=== PATIENT | male | born 1940 | race Caucasian/White ===

== ENCOUNTER 2018-08-02 09:35 | Outpatient (CLI) | payer BC ==
--- NOTE | 2018-08-02 10:19 | RAD ---
LEFT HIP 2 VIEWS: HISTORY: Arthritis. COMPARISON: None. FINDINGS: Small osteophyte formation. The left obturator ring is intact. No acute fracture or malalignment. IMPRESSION: Mild degenerative changes. No acute abnormality. POS: EDMUNDH
--- NOTE | 2018-08-02 10:21 | RAD ---
RIGHT HIP 2 VIEWS: HISTORY: Pain. COMPARISON: None. FINDINGS: No fracture. No malalignment. There is mild acetabular undercoverage of the femoral head. There re main osteophytes to the right femoral head and neck junction. IMPRESSION: Mild to moderate degenerative changes. POS: KASANDRA
== END 2018-08-02 09:36 | disposition home or self-care (01) ==
LOC: BICRAD 09:35
PROVIDERS: ATTEND Family Medicine
DX: M25.559 Pain in unspecified hip (principal); M16.0 Bilateral primary osteoarthritis of hip

== ENCOUNTER 2019-03-25 12:56 | Observation (INO) | payer BC, MEDICARE ==
[2019-03-25 13:18] LABS: #Basophils 0.1 thou/uL (0.0-0.2); #Eosinphils 0.3 thou/uL (0.0-0.7); #Lymphocytes 2.1 thou/uL (1.20-3.40); #Monocytes 0.7 thou/uL (0.11-0.59); #Neutrophils 4.9 thou/uL (1.40-6.50); %Basophils 0.7 % (0.0-1.0); %Eosinophils 3.2 % (0.0-10.0); %Lymphocytes 26.4 % (21.0-51.0); %Monocytes 8.9 % (0.0-10.0); %Neutrophils 60.7 % (42.0-75.0); Hemoglobin 15.7 g/dL (14.0-18.0); Mean Corpuscular HGB CONC 34.5 g/dL (32.0-36.0); Mean Corpuscular Hemoglobin 33.3 pg (27.0-31.0); Mean Corpuscular Volume 96.5 fL (78.0-98.0); Mean Platelet Volume 6.8 fL (7.4-10.4); Platelet Count 253 thou/uL (130-400); RBC Distribution Width 11.9 % (11.5-14.5)
[2019-03-25 13:42] LABS: ALT (SGPT) 13 U/L (8-55); AST (SGOT) 16 U/L (5-34); Albumin 4.3 g/dL (3.4-4.8); Alkaline Phosphatase 47 U/L (40-110); Anion Gap 16 mmol/L (10-20); BUN (Urea Nitrogen) 27 mg/dL (8.4-25.7); Bilirubin, Total 0.5 mg/dL (0.2-1.2); CK (CPK) 74 U/L (30-200); Calc. Creatinine Clearance 0 mL/min (70-130); Calcium 9.1 mg/dL (7.8-10.44); Carbon Dioxide 21 mmol/L (23-31); Chloride 106 mmol/L (98-107); Estimated GFR-MDRD 33; Globulin 2.9 g/dL (2.4-3.5); Glucose 86 mg/dL (83-110); Lipase 46 U/L (8-78); Potassium 4.5 mmol/L (3.5-5.1); Protein, Total 7.2 g/dL (5.8-8.1); Sodium 138 mmol/L (136-145)
--- NOTE | 2019-03-25 13:45 | RAD ---
SINGLE VIEW CHEST: Date: 03/25/19 COMPARISON: 05/20/13. HISTORY: Shortness of breath and chest pain. FINDINGS: Single view of the chest shows normal sized cardiomediastinal silhouette with atherosclerotic calcifi cations in the aorta. There is no evidence of consolidation or pleural effusion. Calcified granuloma is seen projecting over the right lower lobe. IMPRESSION: No evidence of acute cardiopulmonary disease. POS: CET
[2019-03-25 15:50] VITALS: BMI 24.8
[2019-03-25 16:53] LABS: Troponin I Less than 0.010 ng/mL (< 0.028)
[2019-03-25] MEDS ORDERED: Acetaminophen 325 MG TAB PO PRN (17:42)
[2019-03-25] MEDS ORDERED: Ondansetron PF 4 MG/2 ML Vial IVP PRN (17:42)
[2019-03-25] MEDS ORDERED: Ondansetron ODT 4 MG TAB PO PRN (17:42)
[2019-03-25] MEDS ORDERED: Communication Order-Pharmacy FS SCH (17:45)
[2019-03-25] MEDS ORDERED: hydrALAZINE 20 MG/ML VIAL SLOW IVP PRN (17:46)
[2019-03-25] MEDS ORDERED: Nitroglycerin 0.4 MG TAB (25 Tab Bottle) SL PRN (17:48)
[2019-03-25] MEDS: Sodium Chloride 0.9% 1,000 ML IV SCH (17:59)
--- NOTE | 2019-03-25 18:07 | CON ---
DATE OF CONSULTATION: REASON FOR CONSULTATION: Recurrent chest pain and shortness of breath. PRIMARY ORNAMENTAL IRON WORKER: Dr. Allen Ribera. HISTORY OF PRESENT ILLNESS: Mr. Best is an 78-year-old gentleman, who was scheduled for coronary angiography on 04/04. He recently presented with shortness of breath and chest pressure. He is currently comfortable and pain free. Mr. Best did undergo a cardiac PET study on 03/02/2019 and was found to have anterolateral ischemia with LVEF of 58%. PAST MEDICAL HISTORY: 1. Hypertension. 2. Renal insufficiency. HOME MEDICATIONS: 1. Metoprolol. 2. Omeprazole. SURGICAL HISTORY: 1. Back surgery. 2. Eye surgery. 3. Knee replacement. 4. Colonoscopy. SOCIAL HISTORY: No current tobacco or alcohol use. He quit all tobacco products over 20 years ago. ALLERGIES: NONE. REVIEW OF SYSTEMS: A 10-point review of systems is reviewed as above, otherwise negative. PHYSICAL EXAMINATION: GENERAL: Patient is a pleasant gentleman who is in no acute distress. The patient appears their stated age. VITAL SIGNS: Blood pressure 163/86, pulse 62, temperature 98.1. NEUROLOGIC: The patient is alert and oriented x3 with no focal neurologic deficits. HEENT: Sclerae without icterus. Mouth has moist mucous membranes with normal pallor. NECK: No JVD. Carotid upstroke brisk. No bruits bilaterally. LUNGS: Clear to auscultation with unlabored respirations. BACK: No scoliosis or kyphosis. CARDIAC: Regular rate and rhythm with normal S1 and S2. No S3 or S4 noted. No significant rubs, murmurs, thrills, or gallops noted throughout the precordium. PMI is not displaced. There is no parasternal heave. ABDOMEN: Soft, nontender, nondistended. No peritoneal signs present. No hepatosplenomegaly. No abnormal striae. EXTREMITIES: 2+ femoral and 2+ dorsalis pedis pulses. No cyanosis, clubbing, or edema. SKIN: No gross abnormalities. PERTINENT LABORATORY DATA: Hemoglobin 15.7 and creatinine 1.94 with a GFR of 33. Troponin negative. EKG, normal sinus rhythm, normal EKG. IMPRESSION: 1. Atypical chest pain. 2. Abnormal stress. 3. Renal insufficiency. 4. Previous tobacco abuse. RECOMMENDATIONS: I had a long discussion with Mr. Best and with his . Discussed continued to rule out by troponin and CK-MB. We then discussed discharge with outpatient followup. I also discussed proceeding with continued inpatient management with IV fluids and proceed with coronary angiography on Thursday. The patient out for staying over the weekend and proceeding with angio on Thursday. We will start IV fluids. I discussed coronary angiography in full detail with Mr. Best. The risks of the procedure were also discussed. The risks of the procedure include but are not limited to the following: , stroke, RI, need for emergency surgery, loss of limb, bleeding, and infection, as well as a reaction to the dye causing kidney failure and needing long-term dialysis. I also discussed the risks of PCI to include all of the above including coronary dissection and perforation in addition to acute stent thrombosis and restenosis. All questions about the procedure were answered. Given the above, the patient agreed to proceed with coronary angiography and possible PCI. We also discussed drug coated versus nondrug coated stent placement. We will proceed with drug-coated stent placement if needed. There are no contraindications. Job ID: [id number]
[2019-03-25 20:08] LABS: Troponin I 0.017 ng/mL (< 0.028)
--- NOTE | 2019-03-26 | HP ---
PRIMARY CARE PHYSICIAN: Dr. Gilliland. CHIEF COMPLAINT: Chest pain. HISTORY OF PRESENT ILLNESS: Mr. Best is an 78-year-old man, with a past medical history of hypertension and coronary artery disease with previous NC, who had presented to the ED earlier today after he had chest pain, shortness of breath, and some generalized weakness that had worsened this morning. He states that the symptoms have been on and off over the last month. He had seen his primary care doctor, Dr. Gilliland, several weeks ago that what he thought was some indigestion and was started on omeprazole. However, he was sent over to see Dr. Ribera who had put the patient through a stress test and an echocardiogram, which had revealed that the patient had a previous NC, some "leaky valve" and Dr. Ribera had planned to take the patient for cardiac catheterization on 04/04/2019; however, these symptoms worsened this morning; therefore, he came in to be seen sooner. Currently, the patient denies any fever, chills, any headache, blurred vision, dizziness, any chest pain, palpitations, shortness of breath, abdominal pain, nausea, vomiting, or any change in his stool. His serial troponins were found to be negative x2. His creatinine was slightly elevated at 1.94, which appears to be around his baseline and consistent with CKD, stage 3. The patient states that he sees Dr. Resendez for his kidneys. At this time, he appears to be stable with no acute complaints. His EKG showed normal sinus rhythm with a rate of 65 and blood pressure and other vital signs remained stable during the ED course. REVIEW OF SYSTEMS: All other systems were reviewed and found to be negative unless mentioned in the HPI. PAST MEDICAL HISTORY: Hypertension, coronary artery disease with a history of NC, chronic kidney disease. PAST SURGICAL HISTORY: Back surgery x3, bilateral knee replacement, right shoulder surgery. PSYCHIATRIC HISTORY: None. SOCIAL HISTORY: The patient reports drinking about 2 beers daily playing pool; however, denies any illicit drug use and denies smoking. The patient states that he is a former smoker, but quit about 40 years ago. KNOWN ALLERGIES: No known drug allergies. CURRENT HOME MEDICATIONS: 1. Aspirin 325 mg oral daily. 2. Metoprolol 50 mg oral daily. 3. Nifedipine 30 mg p.o. daily. 4. Omeprazole 40 mg oral daily. 5. Acetaminophen 500 mg p.o. daily. PHYSICAL EXAMINATION: VITAL SIGNS: BP 163/86, pulse 62, respiration 18, temp 98.1, O2 saturation 99% on room air. GENERAL: The patient is awake, alert, and oriented x3. He is currently lying comfortably in bed and in no acute distress. HEENT: Atraumatic, normocephalic. Pupils are round and reactive to light. Extraocular muscles intact. Moist mucous membranes noted. NECK: Soft and supple. Trachea midline. CARDIOVASCULAR: Positive S1 and S2. Regular rate and rhythm. No murmur auscultated. RESPIRATORY: Clear to auscultation bilaterally. No wheezes, rales, or rhonchi. ABDOMEN: Soft, nontender. Bowel sounds present. EXTREMITIES: Moves all extremities equal. Pedal and radial pulses are 2+ bilaterally. No edema noted. SKIN: Warm, dry, and intact. No rashes. No ulceration noted. PSYCHIATRIC: Good mood and affect. LABORATORY DATA: WBC 8.0, RBC 4.70, hemoglobin 15.7, hematocrit 45.4, platelet 253. Sodium 138, potassium 4.5, anion gap 16, BUN 27, creatinine 1.94, estimated GFR 33, glucose 86, AST 16, ALT 13, creatine kinase 74, troponin less than 0.010 x2. Lipase 46. DIAGNOSTIC IMAGING: Portable chest x-ray showed no evidence of acute cardiopulmonary disease. ASSESSMENT AND PLAN: 1. Chest pain, angina. Cardiology Services, Dr. Allison is consulted for further evaluation. The patient recently had an abnormal stress test with Dr. Ribera and was planned for cardiac catheterization, 04/04/2019. So far, his cardiac enzymes are stable x2, and he appears to be in normal sinus rhythm on the monitor. 2. Hypertension. Continue home regimen and add IV hydralazine as needed for breakthrough elevated blood pressures with systolic greater than 170. 3. Chronic kidney disease, appears to be stage 3 and the patient follows with Dr. Resendez as outpatient. Cardiology recommending the patient be started on IV fluids at this time and we will recheck BMP in the morning. 4. Deep venous thrombosis and gastrointestinal prophylaxis. 5. Code status is full code. 6. Surrogate decision maker is his spouse, Ashley. DISPOSITION: Pending further workup and clinical findings. Job ID: [id number]
[2019-03-26] MEDS: Sodium Chloride 0.9% 1,000 ML IV SCH ×3 (03:10→22:03)
[2019-03-26 08:40] LABS: #Eosinphils 0.3 thou/uL (0.0-0.7); #Lymphocytes 1.6 thou/uL (1.20-3.40); #Monocytes 0.5 thou/uL (0.11-0.59); #Neutrophils 4.6 thou/uL (1.40-6.50); %Basophils 0.6 % (0.0-1.0); %Eosinophils 3.8 % (0.0-10.0); %Lymphocytes 22.4 % (21.0-51.0); %Monocytes 7.7 % (0.0-10.0); %Neutrophils 65.5 % (42.0-75.0); Mean Corpuscular HGB CONC 33.8 g/dL (32.0-36.0); Mean Corpuscular Hemoglobin 32.8 pg (27.0-31.0); Mean Platelet Volume 7.3 fL (7.4-10.4); Platelet Count 216 thou/uL (130-400); RBC Distribution Width 12.1 % (11.5-14.5); Red Blood Cell (RBC) Count 4.57 mill/uL (4.70-6.10)
[2019-03-26] MEDS: Enoxaparin Sodium 30 MG/0.3 ML SYRINGE SC SCH (08:57)
[2019-03-26] MEDS: NIFEdipine XL 30 MG TAB PO SCH (08:57)
[2019-03-26] MEDS: Famotidine 20 MG TAB PO SCH (08:57)
[2019-03-26] MEDS: Aspirin 325 mg Enteric Coated Tablet PO SCH (08:57)
[2019-03-26 09:00] LABS: Chloride 110 mmol/L (98-107); Potassium 4.7 mmol/L (3.5-5.1); Sodium 140 mmol/L (136-145)
[2019-03-26 09:01] LABS: Calcium 9.1 mg/dL (7.8-10.44); Glucose 101 mg/dL (83-110)
[2019-03-26 09:03] LABS: Anion Gap 10 mmol/L (10-20); Carbon Dioxide 25 mmol/L (23-31)
[2019-03-26 09:04] LABS: Calc. Creatinine Clearance 39 mL/min (70-130); Estimated GFR-MDRD 42
[2019-03-26 09:05] LABS: BUN (Urea Nitrogen) 22 mg/dL (8.4-25.7)
--- NOTE | 2019-03-26 12:11 | PDOC.HOSPP ---
- Subjective Encounter Date: 03/26/19 Encounter Time: 12:09 Subjective: Mr. Best was seen today in follow-up of chest pain. He notes some numbness in her right leg when he walks, but otherwise ok. - Objective Vital Signs & Weight: Vital Signs (12 hours) Temp Pulse Resp BP BP Pulse Ox 03/26/19 11:33 97.4 F L 64 16 193/88 H 100 03/26/19 07:24 98.2 F 61 18 176/83 H 98 03/26/19 03:09 97.4 F L 56 L 19 154/74 H 95 03/26/19 00:22 59 L 14 148/75 H 99 Weight Weight 163 lb 6.4 oz I&O: 03/25/19 03/26/19 03/27/19 06:59 06:59 06:59 Intake Total 1696 Balance 1696 Result Diagrams: 03/26/19 08:35 03/26/19 08:35 Hospitalist ROS - Medication Medications: Active Medications Generic Name Dose Route Start Last Admin Trade Name Abdi PRN Reason Stop Dose Admin Aspirin 325 mg 03/26/19 09:00 03/26/19 08:57 Ecotrin PO 325 mg DAILY TIMA Administration Enoxaparin Sodium 30 mg 03/26/19 09:00 03/26/19 08:57 Lovenox SC 30 mg 0900 TIMA Administration Famotidine 20 mg 03/26/19 09:00 03/26/19 08:57 Pepcid PO 20 mg DAILY TIMA Administration Sodium Chloride 1,000 mls @ 100 mls/hr 03/25/19 17:45 03/26/19 03:10 Normal Saline 0.9% IV 03/28/19 17:46 1,000 mls .Q10H TIMA Administration Metoprolol Succinate 50 mg 03/26/19 09:00 03/26/19 08:57 Toprol Xl PO 50 mg DAILY TIMA Administration Nifedipine 30 mg 03/26/19 09:00 03/26/19 08:57 Procardia Xl PO 30 mg DAILY TIMA Administration - Exam Eye: PERRL, anicteric sclera Heart: RRR, no murmur, no gallops, no rubs, normal peripheral pulses Respiratory: CTAB, no wheezes, no rales, no ronchi, normal chest expansion, no tachypnea, normal percussion Gastrointestinal: soft, non-tender, non-distended, normal bowel sounds, no palpable masses, no hepatomegaly, no splenomegaly Extremities: no cyanosis, no clubbing, no edema Psychiatric: normal affect, normal behavior, A&O x 3 Hosp A/P (1) Chest pain Code(s): R07.9 - CHEST PAIN, UNSPECIFIED Status: Acute (2) Coronary artery disease Code(s): I25.10 - ATHSCL HEART DISEASE OF [place] CORONARY ARTERY W/O ANG PCTRS Status: Chronic (3) Hypertension Code(s): I10 - ESSENTIAL (PRIMARY) HYPERTENSION Status: Chronic (4) Chronic kidney disease, stage 3 Code(s): N18.3 - CHRONIC KIDNEY DISEASE, STAGE 3 (MODERATE) Status: Chronic - Plan * Chest pain- patient recently had an abnormal stress test * Plan is for cardiac cath on Thursday * Chronic kidney disease- stable- he is being hydrated in anticipation for cardiac cath * Right leg numbness- he has great dorsalis pedis and posterior tibial pulses bilaterally, no stigmata of ischemia. He has a history of lumbar disc disease, and I suspect this is the etiology- he does not have any leg or foot weakness * HTN- blood pressure is elevated- will monitor, but will monitor- may need to increase the dose of Nifedipine.
[2019-03-27] MEDS ORDERED: Communication Order-Pharmacy FS SCH (07:15)
[2019-03-27] MEDS: Sodium Chloride 0.9% 1,000 ML IV SCH ×2 (08:28→16:21)
[2019-03-27] MEDS: NIFEdipine XL 30 MG TAB PO SCH (08:29)
[2019-03-27] MEDS: Aspirin 325 mg Enteric Coated Tablet PO SCH (08:29)
[2019-03-27] MEDS: Famotidine 20 MG TAB PO SCH (08:29)
[2019-03-27] MEDS: Enoxaparin Sodium 30 MG/0.3 ML SYRINGE SC SCH (08:29)
[2019-03-27 10:01] LABS: Anion Gap 12 mmol/L (10-20); BUN (Urea Nitrogen) 18 mg/dL (8.4-25.7); Calc. Creatinine Clearance 43 mL/min (70-130); Calcium 9.1 mg/dL (7.8-10.44); Carbon Dioxide 23 mmol/L (23-31); Chloride 108 mmol/L (98-107); Estimated GFR-MDRD 47; Glucose 94 mg/dL (83-110); Potassium 4.4 mmol/L (3.5-5.1); Sodium 139 mmol/L (136-145)
--- NOTE | 2019-03-27 10:10 | PDOC.HOSPP ---
- Subjective Encounter Date: 03/27/19 Encounter Time: 10:08 Subjective: Mr. Best was seen today in follow-up of chest pain. He does not have any complaints this morning. He denies chest pain or shortness of breath. - Objective Vital Signs & Weight: Vital Signs (12 hours) Temp Pulse Resp BP Pulse Ox 03/27/19 08:29 62 03/27/19 07:12 98.1 F 60 20 165/78 H 99 03/27/19 04:19 98.5 F 62 20 157/87 H 96 03/26/19 23:00 97.5 F L 59 L 20 162/75 H 97 Weight Admit Weight 163 lb 6.4 oz Weight 163 lb 8 oz I&O: 03/26/19 03/27/19 03/28/19 06:59 06:59 06:59 Intake Total 1696 3828 Balance 1696 3828 Result Diagrams: 03/26/19 08:35 03/27/19 09:08 Hospitalist ROS - Medication Medications: Active Medications Generic Name Dose Route Start Last Admin Trade Name Abdi PRN Reason Stop Dose Admin Aspirin 325 mg 03/26/19 09:00 03/27/19 08:29 Ecotrin PO 325 mg DAILY TIMA Administration Enoxaparin Sodium 30 mg 03/26/19 09:00 03/27/19 08:29 Lovenox SC 03/27/19 21:00 30 mg 0900 TIMA Administration Famotidine 20 mg 03/26/19 09:00 03/27/19 08:29 Pepcid PO 20 mg DAILY TIMA Administration Sodium Chloride 1,000 mls @ 100 mls/hr 03/27/19 07:15 03/27/19 08:28 Normal Saline 0.9% IV 1,000 mls .Q10H TIMA Administration Metoprolol Succinate 50 mg 03/26/19 09:00 03/27/19 08:29 Toprol Xl PO 50 mg DAILY TIMA Administration Nifedipine 30 mg 03/26/19 09:00 03/27/19 08:29 Procardia Xl PO 30 mg DAILY TIMA Administration - Exam Eye: PERRL Heart: RRR, no murmur, no gallops, no rubs, normal peripheral pulses Respiratory: CTAB, no wheezes, no rales, no ronchi, normal chest expansion, no tachypnea, normal percussion Gastrointestinal: soft, non-tender, non-distended, normal bowel sounds, no palpable masses, no hepatomegaly, no splenomegaly, no bruit, no guarding, no rigidity Extremities: no cyanosis, no clubbing, no edema Psychiatric: normal affect, normal behavior, A&O x 3 Hosp A/P (1) Chest pain Code(s): R07.9 - CHEST PAIN, UNSPECIFIED Status: Acute (2) Coronary artery disease Code(s): I25.10 - ATHSCL HEART DISEASE OF [place] CORONARY ARTERY W/O ANG PCTRS Status: Chronic (3) Hypertension Code(s): I10 - ESSENTIAL (PRIMARY) HYPERTENSION Status: Chronic (4) Chronic kidney disease, stage 3 Code(s): N18.3 - CHRONIC KIDNEY DISEASE, STAGE 3 (MODERATE) Status: Chronic - Plan * Chest pain- possible angina- awaits cardiac cath tomorrow * Chronic kidney disease- continue hydration in anticipation of cardiac cath tomorrow * Right leg numbness- suspect related to lumbar disc disease- this can be evaluated as an outpatient * HTN- blood pressure is still elevated, but trending down- will continue to monitor
--- NOTE | 2019-03-27 13:34 | PDOC.CPN ---
- Subjective Date: 03/27/19 Time: 13:33 Interval history: No complaints. No CP. - Review of Systems General: denies: fever/chills, weight/appetite/sleep changes, night sweats, fatigue Respiratory: denies: cough, congestion, shortness of breath, exercise intolerance Cardiovascular: denies: chest pain, palpitation, edema, paroxysmal nocturnal dyspnea, orthopnea Gastrointestinal: denies: nausea, vomiting, diarrhea, constipation, abd pain, GI bleeding Musculoskeletal: denies: pain, tenderness, stiffness, swelling, arthritis/ arthralgias Neurological: denies: numbness, syncope, seizure, weakness - Objective Allergies/Adverse Reactions: Allergies Allergy/AdvReac Type Severity Reaction Status Date / Time No Known Allergies Allergy Verified 03/25/19 15:40 Visit Medications: Current Medications Acetaminophen (Tylenol) 650 mg PO Q4H PRN PRN Reason: Headache/Fever/Mild Pain (1-3) Aspirin (Ecotrin) 325 mg PO DAILY [facility] Last Admin: 03/27/19 08:29 Dose: 325 mg Enoxaparin Sodium (Lovenox) 30 mg SC 0900 [facility] Stop: 03/27/19 21:00 Last Admin: 03/27/19 08:29 Dose: 30 mg Famotidine (Pepcid) 20 mg PO DAILY [facility] Last Admin: 03/27/19 08:29 Dose: 20 mg Hydralazine HCl (Apresoline) 10 mg SLOW IVP Q4H PRN PRN Reason: SBP >170 OR DBP >100 Sodium Chloride (Normal Saline 0.9%) 1,000 mls @ 100 mls/hr IV .Q10H [facility] Last Admin: 03/27/19 08:28 Dose: 1,000 mls Metoprolol Succinate (Toprol Xl) 50 mg PO DAILY [facility] Last Admin: 03/27/19 08:29 Dose: 50 mg Miscellaneous Information (Communication Order-Pharmacy) 0 each FS ONE [facility] Stop: 03/28/19 17:46 Miscellaneous Information (Communication Order-Pharmacy) 0 each FS ONE [facility] Stop: 03/27/19 23:59 Nifedipine (Procardia Xl) 30 mg PO DAILY [facility] Last Admin: 03/27/19 08:29 Dose: 30 mg Nitroglycerin (Nitrostat) 0.4 mg SL Q5MIN PRN PRN Reason: Chest Pain Ondansetron HCl (Zofran Odt) 4 mg PO Q6H PRN PRN Reason: Nausea/Vomiting Ondansetron HCl (Zofran) 4 mg IVP Q6H PRN PRN Reason: Nausea/Vomiting Vital Signs & Weight: Vital Signs Temp Pulse Resp BP Pulse Ox 03/27/19 11:19 98.0 F 62 20 171/88 H 98 03/27/19 08:29 62 03/27/19 07:12 98.1 F 60 20 165/78 H 99 03/27/19 04:19 98.5 F 62 20 157/87 H 96 Admit Weight 163 lb 6.4 oz Weight 163 lb 8 oz - Physical Exam General: alert & oriented x3, appears well HEENT: mucus membranes moist Neck: supple neck Cardiac: regular rate and rhythm Lungs: clear to auscultation, no wheeze, rales, rhonchi Neuro: grossly intact Abdomen: unremarkable Extremities: no edema Skin: clear - Labs Result Diagrams: 03/26/19 08:35 03/27/19 09:08 Troponin/CKMB Troponin I 0.017 ng/mL (< 0.028) 03/25/19 19:35 - Telemetry Sinus rhythms and dysrhythmias: sinus rhythm - Assessment/Plan Assessment/Plan: 1. CP 2. MILIND 3. Recent abnormal stress.
[2019-03-28] MEDS: Sodium Chloride 0.9% 1,000 ML IV SCH (02:57)
[2019-03-28 05:33] LABS: Anion Gap 9 mmol/L (10-20); BUN (Urea Nitrogen) 16 mg/dL (8.4-25.7); Calc. Creatinine Clearance 44 mL/min (70-130); Calcium 8.7 mg/dL (7.8-10.44); Carbon Dioxide 26 mmol/L (23-31); Chloride 109 mmol/L (98-107); Estimated GFR-MDRD 49; Glucose 100 mg/dL (83-110); Potassium 4.2 mmol/L (3.5-5.1); Sodium 140 mmol/L (136-145)
[2019-03-28] MEDS: NIFEdipine XL 30 MG TAB PO SCH (05:43)
[2019-03-28] MEDS: Famotidine 20 MG TAB PO SCH (05:43)
[2019-03-28] MEDS: Aspirin 325 mg Enteric Coated Tablet PO SCH (05:44)
[2019-03-28] MEDS ORDERED: Lidocaine 1% (PF) 30 ML VIAL ONE ×2 (06:29)
[2019-03-28] MEDS ORDERED: hydrALAZINE 20 MG/ML VIAL ONE (07:14)
[2019-03-28] MEDS ORDERED: Sodium Chloride 0.9% 200 ML IV PRN (07:29)
[2019-03-28] MEDS ORDERED: Nitroglycerin 0.4 MG TAB (25 Tab Bottle) SL PRN (07:29)
[2019-03-28] MEDS ORDERED: Acetaminophen/Codeine 30-300mg Tablet PO PRN ×2 (07:29)
[2019-03-28] MEDS ORDERED: Sodium Chloride 0.9% 1,000 ML IV SCH (07:30)
[2019-03-28] MEDS ORDERED: Heparin 10,000 UNITS/1 ML VIAL ONE (07:40)
[2019-03-28 11:07] VITALS: TEMP 97.6
[2019-03-28 11:51] VITALS: BP 142/72
--- NOTE | 2019-03-28 12:00 | PDOC.HOSPP ---
- Subjective Encounter Date: 03/28/19 Encounter Time: 11:58 Subjective: Mr. Best was seen today in follow-up of angina. He does nothave any new complaints. He is post cath and is stable. - Objective Vital Signs & Weight: Vital Signs (12 hours) Temp Pulse Resp BP Pulse Ox 03/28/19 11:12 97.6 F 58 L 16 142/72 H 99 03/28/19 07:50 97.6 F 63 16 181/83 H 97 03/28/19 05:44 65 03/28/19 05:43 65 03/28/19 03:00 98.0 F 57 L 16 159/72 H 97 03/28/19 00:20 98.0 F 59 L 16 162/83 H 98 Weight Admit Weight 163 lb 6.4 oz Weight 161 lb 9.6 oz I&O: 03/27/19 03/28/19 03/29/19 06:59 06:59 06:59 Intake Total 3828 3556 Output Total 1350 600 Balance 3828 2206 -600 Result Diagrams: 03/26/19 08:35 03/28/19 04:45 Hospitalist ROS - Medication Medications: Active Medications Generic Name Dose Route Start Last Admin Trade Name Freq PRN Reason Stop Dose Admin Aspirin 325 mg 03/26/19 09:00 03/28/19 05:44 Ecotrin PO 325 mg DAILY TIMA Administration Famotidine 20 mg 03/26/19 09:00 03/28/19 05:43 Pepcid PO 20 mg DAILY TIMA Administration Sodium Chloride 1,000 mls @ 125 mls/hr 03/28/19 07:30 03/28/19 09:19 Normal Saline 0.9% IV 03/28/19 15:31 Not Given .Q8H TIMA Metoprolol Succinate 50 mg 03/26/19 09:00 03/28/19 05:44 Toprol Xl PO 50 mg DAILY TIMA Administration - Exam Eye: PERRL, anicteric sclera Heart: RRR, no murmur, no gallops, no rubs, normal peripheral pulses Respiratory: CTAB, no wheezes, no rales, no ronchi, normal chest expansion, no tachypnea, normal percussion Extremities: no edema Skin: no lesions Hosp A/P (1) Chest pain Code(s): R07.9 - CHEST PAIN, UNSPECIFIED Status: Acute (2) Coronary artery disease Code(s): I25.10 - ATHSCL HEART DISEASE OF [place] CORONARY ARTERY W/O ANG PCTRS Status: Chronic (3) Hypertension Code(s): I10 - ESSENTIAL (PRIMARY) HYPERTENSION Status: Chronic (4) Chronic kidney disease, stage 3 Code(s): N18.3 - CHRONIC KIDNEY DISEASE, STAGE 3 (MODERATE) Status: Chronic - Plan * Angina- the patient is stable * HTN- blood pressure is better * Await final cath report, but anticipate discharge later today *
--- NOTE | 2019-03-28 13:13 | PDOC.CPN ---
- Subjective Date: 03/28/19 Time: 13:13 Interval history: See A/P - Objective Allergies/Adverse Reactions: Allergies Allergy/AdvReac Type Severity Reaction Status Date / Time No Known Allergies Allergy Verified 03/25/19 15:40 Visit Medications: Current Medications Acetaminophen (Tylenol) 650 mg PO Q4H PRN PRN Reason: Headache/Fever/Mild Pain (1-3) Acetaminophen/Codeine Phosphate (Tylenol #3) 1 tab PO Q4H PRN PRN Reason: Mild Pain (1-3) Acetaminophen/Codeine Phosphate (Tylenol #3) 2 tab PO Q4H PRN PRN Reason: Moderate Pain (4-6) Aspirin (Ecotrin) 325 mg PO DAILY [facility] Last Admin: 03/28/19 05:44 Dose: 325 mg Famotidine (Pepcid) 20 mg PO DAILY [facility] Last Admin: 03/28/19 05:43 Dose: 20 mg Hydralazine HCl (Apresoline) 10 mg SLOW IVP Q4H PRN PRN Reason: SBP >170 OR DBP >100 Sodium Chloride (Normal Saline 0.9%) 1,000 mls @ 125 mls/hr IV .Q8H [facility] Stop: 03/28/19 15:31 Last Admin: 03/28/19 09:19 Dose: Not Given Metoprolol Succinate (Toprol Xl) 50 mg PO DAILY [facility] Last Admin: 03/28/19 05:44 Dose: 50 mg Miscellaneous Information (Communication Order-Pharmacy) 0 each FS ONE [facility] Stop: 03/28/19 17:46 Nitroglycerin (Nitrostat) 0.4 mg SL Q5MIN PRN PRN Reason: Chest Pain Ondansetron HCl (Zofran Odt) 4 mg PO Q6H PRN PRN Reason: Nausea/Vomiting Ondansetron HCl (Zofran) 4 mg IVP Q6H PRN PRN Reason: Nausea/Vomiting Sodium Chloride (Flush - Normal Saline) 10 ml IVF Q12HR [facility] Sodium Chloride (Flush - Normal Saline) 10 ml IVF PRN PRN PRN Reason: Saline Flush Vital Signs & Weight: Vital Signs Temp Pulse Resp BP Pulse Ox 03/28/19 11:12 97.6 F 58 L 16 142/72 H 99 03/28/19 07:50 97.6 F 63 16 181/83 H 97 03/28/19 05:44 65 03/28/19 05:43 65 03/28/19 03:00 98.0 F 57 L 16 159/72 H 97 Admit Weight 163 lb 6.4 oz Weight 161 lb 9.6 oz - Labs Result Diagrams: 03/26/19 08:35 03/28/19 04:45 Troponin/CKMB Troponin I 0.017 ng/mL (< 0.028) 03/25/19 19:35 - Assessment/Plan Assessment/Plan: Severe disease to OMB Too small to stent IMO tret medically Stop nifedepine On BB Add low dose imdur ASA Fu ariana in 1-2 weeks
[2019-03-28] MEDS ORDERED: Iopamidol 370 76% 100 ML VIAL ONE (14:01)
--- NOTE | 2019-03-28 21:44 | DIS ---
DATE OF ADMISSION: 03/25/2019 DATE OF DISCHARGE: 03/28/2019 PRIMARY CARE PHYSICIAN: Aric Gilliland MD DISCHARGE DISPOSITION: Home. DISCHARGE DIAGNOSES: 1. Unstable angina. 2. Coronary artery disease. 3. Hypertension. 4. Chronic kidney disease stage 3. DISCHARGE MEDICATIONS: 1. The patient was taken off nifedipine and placed on Imdur extended release 30 mg daily. 2. Omeprazole 40 mg daily. 3. Metoprolol succinate extended release 50 mg daily. 4. Aspirin 325 mg daily. 5. Tylenol p.r.n. PROCEDURES DONE DURING ADMISSION: The patient had a cardiac catheterization during the hospital stay demonstrating a single-vessel coronary artery disease, which was not amenable to stenting. CODE STATUS: Full code. ALLERGIES: NO KNOWN DRUG ALLERGIES. HOSPITAL COURSE: Mr. Best is a pleasant 78-year-old gentleman, who was sent to the hospital by his oxygen furnace operator and that he was having continued chest pain. He had some workup in the outpatient setting and had a stress test, which was positive. The plan was to do a cardiac catheterization as an outpatient. However, due to the recurrent chest pain, he was placed in observation. He underwent cardiac catheterization after being hydrated due to his chronic kidney disease. The cardiac cath did demonstrate some new single-vessel disease, not amenable to stenting. The patient will be treated medically by changing and adjusting his medication some. He has been taken off nifedipine and placed on Imdur in its place. At the time of discharge, the patient was completely chest pain free with no symptoms and is being discharged home to have close outpatient followup. Job ID: [id number]
[2019-03-29] MEDS ORDERED: Isosorbide Mononitrate (ER) 30 MG TAB PO SCH (09:00)
--- NOTE | 2019-04-02 23:56 | EKG ---
Test Reason : Blood Pressure : / mmHG Vent. Rate : 065 BPM Atrial Rate : 065 BPM P-R Int : 156 ms QRS Dur : 078 ms QT Int : 412 ms P-R-T Axes : 000 -14 016 degrees QTc Int : 428 ms Normal sinus rhythm Normal ECG Confirmed by ISIDRO GALLAGHER, NISHA ([id number]), newspaper editor managing MICHAEL JAMESON ([id number]) on 04/02/2019 11:56:18 PM Referred By: Confirmed By:NISHA FELIX MD
== END 2019-03-28 14:51 | disposition home or self-care (01) ==
LOC: ERS 12:56 → 2SW 15:35
PROVIDERS: ADMIT Internal Medicine; ATTEND Internal Medicine
PROC: 4A023N7 Measurement of Cardiac Sampling and Pressure, Left Heart, Percutaneous Approach (ICD-10-PCS; principal; 2019-03-28)
PROC: B2111ZZ Fluoroscopy of Multiple Coronary Arteries using Low Osmolar Contrast (ICD-10-PCS; 2019-03-28)
DX: I25.110 Atherosclerotic heart disease of native coronary artery with unstable angina pectoris (principal); I12.9 Hypertensive chronic kidney disease with stage 1 through stage 4 chronic kidney disease, or unspecified chronic kidney disease; N18.3 Chronic kidney disease, stage 3 (moderate); I25.2 Old myocardial infarction; Z87.891 Personal history of nicotine dependence; Z79.82 Long term (current) use of aspirin; Z79.899 Other long term (current) drug therapy; Z96.653 Presence of artificial knee joint, bilateral
CPT/HCPCS: 36415; 71045; 76942; 80048; 80053; 82550; 83690; 84484; 85025; 93005; 93454; 94760; 96360; 96361; 96372; C1769; C1887; G0378; J0360; J1644; J1650; J2001; Q9967